=== PATIENT | male | born 1985 | race African-American/Black ===

== ENCOUNTER 2020-01-06 20:08 | Emergency (ER) | payer OTHER ==
[~2020-01-06] VITALS: Ht 172.7 cm; Wt 72.0 kg
--- NOTE | 2020-01-06 22:26 | PHYS DOC ---
General Adult EDM: Chief Complaint: NAUSEA/VOMITING/DIARRHA HPI: HPI: Patient is a 34 year old male with history of diabetes type 1 who presents the ED today complaining of hyperglycemia with nausea and vomiting that began this morning. He states his blood glucose at home was in the 400s. He states he used his Novolog. Patient states he does not qualify for an insulin pump because his blood glucose are usually very high and he was told the insulin pump will not benefit him. He states he does not have a primary care doctor. He states he is also supposed to be on Levemir but he ran out of it. (EVANGELIST MANSFIELD APRN) Review of Systems: Review of Systems: Constitutional: Denies fever or chills. [] Eyes: Denies change in visual acuity. [] HENT: Denies nasal congestion or sore throat. [] Respiratory: Denies cough or shortness of breath. [] Cardiovascular: Denies chest pain or edema. [] GI: Denies abdominal pain, nausea, vomiting, bloody stools or diarrhea. [] : Denies dysuria. [] Musculoskeletal: Denies back pain or joint pain. [] Integument: Denies rash. [] Neurologic: Denies headache, focal weakness or sensory changes. [] Endocrine: Reports hypoglycemia Lymphatic: Denies swollen glands. [] Psychiatric: Denies depression or anxiety. [] (EVANGELIST MANSFIELD APRN) Heart Score: Risk Factors: Risk Factors: DM, Current or recent (<one month) smoker, HTN, HLP, family history of CAD, obesity. Risk Scores: Score 0 - 3: 2.5% MACE over next 6 weeks - Discharge Home Score 4 - 6: 20.3% MACE over next 6 weeks - Admit for Clinical Observation Score 7 - 10: 72.7% MACE over next 6 weeks - Early Invasive Strategies (EVANGELIST MANSFIELD APRN) Current Medications: Current Medications Medications (Trade) Dose Ordered Sig/Tamela Start Time Stop Time Status Last Admin Dose Admin Famotidine (Pepcid Vial) 20 mg 1X ONCE 01/06/20 22:00 01/06/20 22:01 UNV Ondansetron HCl (Zofran) 4 mg 1X ONCE 01/06/20 22:00 01/06/20 22:01 UNV Sodium Chloride 1,000 ml @ 1,000 mls/hr 1X ONCE 01/06/20 22:00 01/06/20 22:59 UNV (EVANGELIST MANSFIELD APRN) Physical Exam: PE: Constitutional: Well developed, well nourished, no acute distress, non-toxic appearance. [] HENT: Normocephalic, atraumatic, bilateral external ears normal, oropharynx moist, no oral exudates, nose normal. [] Eyes: PERRLA, EOMI, conjunctiva normal, no discharge. [] Neck: Normal range of motion, no tenderness, supple, no stridor. [] Cardiovascular:Heart rate regular rhythm, no murmur [] Lungs & Thorax: Bilateral breath sounds clear to auscultation [] Abdomen: Bowel sounds normal, soft, no tenderness, no masses, no pulsatile masses. [] Skin: Warm, dry, no erythema, no rash. [] Back: No tenderness, no CVA tenderness. [] Extremities: No tenderness, no cyanosis, no clubbing, ROM intact, no edema. [] Neurologic: Alert and oriented X 3, normal motor function, normal sensory function, no focal deficits noted. [] Psychologic: Flat affect, depressed mood (EVANGELIST MANSFIELD APRN) Current Patient Data: Labs: Laboratory Tests Test 01/06/20 21:30 01/06/20 22:04 Glucose (Fingerstick) 63 mg/dL (70-99) L 92 mg/dL (70-99) (EVANGELIST MANSFIELD APRN) EKG: EKG: [] (EVANGELIST MANSFIELD APRN) Radiology/Procedures: Radiology/Procedures: [] (EVANGELIST MANSFIELD APRN) Course & Med Decision Making: Course & Med Decision Making Pertinent Labs and Imaging studies reviewed. (See chart for details) This is a 34-year-old male patient presenting to the ED today complaining of hyperglycemia. He is a type I diabetic that appears to be uncontrolled. He states he ran out of Simple-Fillir but has NovoLog at home. Bedside blood glucose 92 on arrival to the ED. [address] Burk (EVANGELIST MANSFIELD APRN) Lucius Disclaimer: Lucius Disclaimer: This electronic medical record was generated, in whole or in part, using a voice recognition dictation system. (EVANGELIST MANSFIELD APRN) Departure Departure Impression: Primary Impression: Diabetes Qualified Codes: E13.69 - Other specified diabetes mellitus with other specified complication Additional Impression: Medication refill Disposition: 01 HOME, SELF-CARE Condition: STABLE Referrals: NO PCP (PCP) Patient Instructions: How and Where to Give Insulin Injections, Adult Additional Instructions: [facility] [address] [place] [address] [facility] [address] [place] [address] [facility] [address] [facility] [place] [address] [facility] [address] [place] [address] [facility] [address] [place] [address] [facility] [address] [place] [address] [facility] [address] [place] [address] [facility] [address] [place] [address] [facility] [address] [place] [address] [facility] [address] [place] [address] Scripts Insulin Glargine,Hum.rec.anlog (LANTUS SOLOSTAR) 100 Unit/1 Ml Insuln.pen 20 UNIT SQ BID, #15 ML 5 Refills Prov: YOLANDA BURK DO 01/07/20 Justicifation of Admission Dx: Justifications for Admission: Justification of Admission Dx: N/A (EVANGELIST MANSFIELD APRN) Justification of Admission Dx: N/A (YOLANDA BURK DO) Attending Signature Attending Signature I have reviewed the non-physician practitioner's documentation, personally taken the patient's history, performed an exam and agree with the physical findings, clinical impression, and management plan. In short patient is a 34-year-old male who presents with chief complaint of hyperglycemia. He states that he has been out of his long-acting insulin at home. He states he has a full prescription of his short acting insulin. He notes mild diffuse abdominal pain. Reports nausea without vomiting. Denies fevers. Denies chest pain or shortness of breath. Denies syncope. States that he has not had his long-acting insulin in 1 week and does not follow with a primary care physician. Initial vital signs noted above. Physical exam noted above. Basic labs were obtained and show no signs of DKA. I did engage patient a lengthy discussion regarding results of his lab work. I also engaged in a lengthy discussion regarding the potential benefit of hospitalization to establish diabetic care or social work consultation for outpatient diabetic management. Patient is refusing both of these options. He states he only wants prescription of long-acting insulin to go home. He states he uses 20 units of Lantus twice a day. Utilizing shared decision making patient will be discharged home. Will be given a prescription of Lantus for home. Return cautions discussed and understood. He was given referral to primary care physician. Stable for discharge home. Laboratory Tests Test 01/06/20 21:30 01/06/20 22:04 01/07/20 00:05 01/07/20 00:21 Glucose (Fingerstick) 63 mg/dL 92 mg/dL 128 mg/dL White Blood Count 5.5 x10^3/uL Red Blood Count 4.77 x10^6/uL Hemoglobin 14.3 g/dL Hematocrit 42.5 % Mean Corpuscular Volume 89 fL Mean Corpuscular Hemoglobin 30 pg Mean Corpuscular Hemoglobin Concent 34 g/dL Red Cell Distribution Width 13.8 % Platelet Count 170 x10^3/uL Neutrophils (%) (Auto) 76 % Lymphocytes (%) (Auto) 18 % Monocytes (%) (Auto) 5 % Eosinophils (%) (Auto) 0 % Basophils (%) (Auto) 1 % Neutrophils # (Auto) 4.2 x10^3/uL Lymphocytes # (Auto) 1.0 x10^3/uL Monocytes # (Auto) 0.3 x10^3/uL Eosinophils # (Auto) 0.0 x10^3/uL Basophils # (Auto) 0.1 x10^3/uL Sodium Level 139 mmol/L Potassium Level 3.9 mmol/L Chloride Level 100 mmol/L Carbon Dioxide Level 30 mmol/L Anion Gap 9 Blood Urea Nitrogen 10 mg/dL Creatinine 0.9 mg/dL Estimated GFR (Cockcroft-Gault) 116.2 BUN/Creatinine Ratio 11 Glucose Level 120 mg/dL Calcium Level 9.0 mg/dL Magnesium Level 2.0 mg/dL Total Bilirubin 1.0 mg/dL Aspartate Amino Transf (AST/SGOT) 19 U/L Alanine Aminotransferase (ALT/SGPT) 23 U/L Alkaline Phosphatase 67 U/L Total Protein 7.2 g/dL Albumin 3.9 g/dL Albumin/Globulin Ratio 1.2 Lipase 33 U/L Ethyl Alcohol Level < 10 mg/dL Acetone Level Neg Current Medications Medications (Trade) Dose Ordered Sig/Tamela Route PRN Reason Start Time Stop Time Status Last Admin Dose Admin Sodium Chloride 1,000 ml @ 1,000 mls/hr 1X ONCE IV 01/06/20 22:30 01/06/20 23:29 DC 01/06/20 23:23 Ondansetron HCl (Zofran) 4 mg 1X ONCE IVP 01/06/20 22:30 01/06/20 22:32 DC 01/06/20 23:22 Famotidine (Pepcid Vial) 20 mg 1X ONCE IVP 01/06/20 22:30 01/06/20 22:32 DC 01/06/20 23:23 (YOLANDA BURK DO) EVANGELIST MANSFIELD APRN Jan 06, 2020 22:26 YOLANDA BURK DO Jan 07, 2020 01:24
[2020-01-06] MEDS ORDERED: ONDANSETRON PF 4 MG/2 ML VIAL. IVP ONE (22:30)
[2020-01-06] MEDS ORDERED: IV NORMAL SALINE 1000ML BAG 1,000 ML IV ONE (22:30)
[2020-01-06] MEDS ORDERED: FAMOTIDINE 20 MG/2 ML VIAL IVP ONE (22:30)
[2020-01-07 00:11] LABS: BASO # 0.1 x10^3/uL (0.0-0.2); BASO % 1 % (0-3); EOS % 0 % (0-3); HEMATOCRIT 42.5 % (39.0-53.0); HEMOGLOBIN 14.3 g/dL (13.0-17.5); LYMPH % 18 % (24-48); MEAN CORPUSCULAR HEMOGLOBIN 30 pg (25-35); MEAN CORPUSCULAR HGB CONC 34 g/dL (31-37); MEAN CORPUSCULAR VOLUME 89 fL (79-100); MONO # 0.3 x10^3/uL (0.0-1.1); MONO % 5 % (0-9); NEUT # 4.2 x10^3/uL (1.8-7.7); NEUT % 76 % (31-73); PLATELET COUNT 170 x10^3/uL (140-400); RED BLOOD COUNT 4.77 x10^6/uL (4.30-5.70); RED CELL DISTRIBUTION WIDTH 13.8 % (11.5-14.5); WHITE BLOOD COUNT 5.5 x10^3/uL (4.0-11.0)
[2020-01-07 00:20] LABS: CREATININE 0.9 mg/dL (0.7-1.3); GFR 116.2; POTASSIUM 3.9 mmol/L (3.5-5.1)
[2020-01-07 00:26] LABS: ALBUMIN 3.9 g/dL (3.4-5.0); ALBUMIN/GLOBULIN RATIO 1.2 (1.0-1.7); TOTAL PROTEIN 7.2 g/dL (6.4-8.2)
[2020-01-07 01:09] LABS: BILIRUBIN,URINE NEGATIVE (NEG); CLARITY,URINE CLEAR; COLOR,URINE AMBER; NITRITE,URINE NEGATIVE (NEG); PH,URINE 8.5 (<5.0-8.0); PROTEIN,URINE 30 mg/dL (NEG-TRACE)
[2020-01-07 01:19] LABS: BARBITURATES NEG (NEG); BENZODIAZEPINES NEG (NEG); CANNABINOIDS POS (NEG); COCAINE NEG (NEG); METHADONE NEG (NEG); OPIATES NEG (NEG); PHENCYCLIDINE NEG (NEG)
[2020-01-07] MEDS ORDERED: INSU100I13 SQ (01:23)
[2020-01-07 01:30] VITALS: BP 152/88
[2020-01-07 01:31] LABS: AMPHETAMINE/METHAMPHETAMINE NEG (NEG)
[2020-01-07 01:48] LABS: BACTERIA,URINE FEW /HPF (0-FEW); SQUAMOUS EPITHELIAL CELL,UR FEW /LPF
--- NOTE | 2020-01-09 10:41 | NUR ---
IP: Informed pt of negative COVID results. Pt verbalized understanding.
== END 2020-01-07 01:30 | disposition home or self-care (01) ==
LOC: ER 20:08
DX: E10.65 Type 1 diabetes mellitus with hyperglycemia (principal); R11.2 Nausea with vomiting, unspecified; Z20.818 Contact with and (suspected) exposure to other bacterial communicable diseases
CPT/HCPCS: 36415; 80053; 80307; 81001; 82010; 82962; 83690; 83735; 85025; 96361; 96374; 96375; 99285; G0480; J2405; J3490; J7030; U0003